=== PATIENT | female | born 1960 | race Caucasian/White ===

== ENCOUNTER 2018-12-03 09:17 | Day surgery (SDC) | payer OTHER ==
[~2018-12-03] VITALS: Ht 167.6 cm; Wt 78.8 kg
[~2018-12-03 09:17] MED LIST: CIME300 PO; LORA1 PO; LOSA50 PO; METO50ER PO; NICO21TP TOP; PRED20 PO; SPIR25 PO; TORSE20 PO
[2018-12-03] MEDS ORDERED: SERT50 PO (09:46)
[2018-12-30] MEDS ORDERED: HYDHCL25 PO (15:28)
== END 2018-12-03 13:48 | disposition home or self-care (01) ==
LOC: ORSCSDS 09:17
PROVIDERS: Orthopaedic Surgery
PROC: 0PSH04Z Reposition Right Radius with Internal Fixation Device, Open Approach (ICD-10-PCS; principal; 2018-12-03 10:55)
DX: S52.571A Other intraarticular fracture of lower end of right radius, initial encounter for closed fracture (principal); I10 Essential (primary) hypertension; Z87.891 Personal history of nicotine dependence; F32.9 Major depressive disorder, single episode, unspecified; Z79.899 Other long term (current) drug therapy
CPT/HCPCS: 93005; 93010; C1713; J0171; J0690; J1100; J1885; J2250; J2370; J2405; J2704; J3010; J7120

== ENCOUNTER 2018-12-31 11:20 | Day surgery (SDC) | payer OTHER ==
[~2018-12-31] VITALS: Ht 167.6 cm; Wt 76.8 kg
[~2018-12-31 11:20] MED LIST changes: +HYDHCL25 PO; +SERT50 PO
== END 2018-12-31 15:45 | disposition home or self-care (01) ==
LOC: ORSCSDS 11:20
PROVIDERS: Orthopaedic Surgery
PROC: 01N50ZZ Release Median Nerve, Open Approach (ICD-10-PCS; principal; 2018-12-31 12:45)
PROC: 0RPN04Z Removal of Internal Fixation Device from Right Wrist Joint, Open Approach (ICD-10-PCS; principal; 2018-12-31 12:45)
DX: T84.199A Other mechanical complication of internal fixation device of unspecified bone of limb, initial encounter (principal); S52.501D Unspecified fracture of the lower end of right radius, subsequent encounter for closed fracture with routine healing; G56.01 Carpal tunnel syndrome, right upper limb; I25.2 Old myocardial infarction; Z87.891 Personal history of nicotine dependence; Z79.899 Other long term (current) drug therapy
CPT/HCPCS: J0690; J1885; J2250; J2704; J3010; J7120

== ENCOUNTER → 2019-04-09 | Outpatient (CLI) | payer OTHER | LOC: LAB SHORT 19:16 → LAB EV 19:16 | DX: L72.3 Sebaceous cyst (principal); L08.9 Local infection of the skin and subcutaneous tissue, unspecified | CPT/HCPCS: 87070; 87075; 87076; 87205 ==

== ENCOUNTER 2020-01-04 07:41 | Day surgery (SDC) | payer OTHER ==
[~2020-01-04] VITALS: Ht 167.6 cm; Wt 80.9 kg
[~2020-01-04 07:41] MED LIST changes: +BUSP10 PO; +LOSA25 PO; +Naltrexone HCl50 MG PO
== END 2020-01-04 09:59 | disposition home or self-care (01) ==
LOC: ORSCSDS 07:41
PROVIDERS: Internal Medicine Gastroenterology
PROC: 0D598ZZ Destruction of Duodenum, Via Natural or Artificial Opening Endoscopic (ICD-10-PCS; principal; 2020-01-04 09:00)
PROC: 0DBK8ZX Excision of Ascending Colon, Via Natural or Artificial Opening Endoscopic, Diagnostic (ICD-10-PCS; principal; 2020-01-04 09:00)
PROC: 0DBN8ZX Excision of Sigmoid Colon, Via Natural or Artificial Opening Endoscopic, Diagnostic (ICD-10-PCS; principal; 2020-01-04 09:00)
PROC: 0DBM8ZX Excision of Descending Colon, Via Natural or Artificial Opening Endoscopic, Diagnostic (ICD-10-PCS; principal; 2020-01-04 09:00)
PROC: 0DB58ZX Excision of Esophagus, Via Natural or Artificial Opening Endoscopic, Diagnostic (ICD-10-PCS; principal; 2020-01-04 09:00)
DX: R19.5 Other fecal abnormalities (principal); K22.70 Barrett's esophagus without dysplasia; K31.819 Angiodysplasia of stomach and duodenum without bleeding; K44.9 Diaphragmatic hernia without obstruction or gangrene; K63.5 Polyp of colon; K57.30 Diverticulosis of large intestine without perforation or abscess without bleeding; F41.9 Anxiety disorder, unspecified; N18.30 Chronic kidney disease, stage 3 unspecified; Z87.891 Personal history of nicotine dependence; Z79.899 Other long term (current) drug therapy
CPT/HCPCS: 88305; J2704; J7120